=== PATIENT | male | born 1990 | race Caucasian/White ===

== ENCOUNTER 2018-01-08 20:08 | Emergency (ER) | payer OTHER ==
[~2018-01-08] VITALS: Ht 165.1 cm; Wt 77.0 kg
[~2018-01-08 20:08] MED LIST: PRLSR20 PO
[2018-01-08 20:11] VITALS: Ht 165.1 cm; Wt 77.0 kg
[2018-01-08 21:26] VITALS: O2SAT 100
[2018-01-08] MEDS ORDERED: KETOROLAC TROMETHAMINE 30 MG/ML VIAL IV STA (22:01)
[2018-01-08] MEDS ORDERED: IBUP-1428 PO (22:08)
[2018-01-08 22:58] LABS: BASO % 0.2 %; BASO ABS # 0.03 K/uL (0-0.2); EOS % 1.6 %; EOS ABS # 0.19 K/uL (0-0.5); HEMATOCRIT 38.4 % (42-52); HEMOGLOBIN 13.2 g/dL (14.0-18.0); IG# 0.01 K/uL (0.00-0.02); LYMPH ABS # 0.97 K/uL (1.2-3.4); MEAN CELL VOLUME 89.3 fL (80-100); MEAN CORPUSCULAR HEMOGLOBIN 30.7 pg (25-34); MEAN CORPUSCULAR HGB CONC 34.4 g/dl (32-36); MEAN PLATELET VOLUME 9.1 fL (7.4-10.4); MONO % 4.8 %; MONO ABS # 0.58 K/uL (0.11-0.59); NEUT % 85.3 %; NEUT ABS # 10.41 K/uL (1.4-6.5); PLATELET COUNT 247 K/uL (130-400); RED CELL DISTRIBUTION WIDTH CV 12.8 % (11.5-14.5); WHITE BLOOD COUNT 12.19 K/uL (4.8-10.8)
[2018-01-08 23:15] LABS: ALBUMIN 3.9 gm/dl (3.4-5.0); ALT/SGPT 21 U/L (12-78); AST/SGOT 11 U/L (15-37); BLOOD UREA NITROGEN 20 mg/dl (7-18); CARBON DIOXIDE 25 mmol/L (21-32); CREATININE 1.36 mg/dl (0.60-1.40); GLUCOSE 150 mg/dl (70-99); LIPASE 153 U/L (73-393); POTASSIUM 3.8 mmol/L (3.5-5.1); SODIUM 138 mmol/L (136-145)
[2018-01-08 23:18] LABS: ALKALINE PHOSPHATASE 68 U/L (45-117); TOTAL PROTEIN 6.8 gm/dl (6.4-8.2)
[2018-01-09] MEDS ORDERED: ONDANSETRON INJ 2 MG/ML 2 ML VIAL IV STA (01:13)
[2018-01-09] MEDS ORDERED: MoRPHine SULFATE 4 MG/ML 1 ML CARP\\VIAL IV STA (01:13)
[2018-01-09] MEDS ORDERED: OXYC1TAB3 PO (01:40)
[2018-01-09] MEDS ORDERED: OXYCODONE IR HOME PACK PO ONE (01:45)
[2018-01-09] MEDS ORDERED: ONDANSETRON HOME PACK 4MG OD TAB PO ONE (01:45)
[2018-01-09 02:00] VITALS: BP 117/71; PULSE 62; TEMP 36.5; O2SAT 95
--- NOTE | 2018-01-09 02:13 | EMERGENCY ROOM VISIT NOTE ---
History First contact with patient: 21:25 Chief Complaint: ABDOMINAL PAIN Stated Complaint: ABD PAIN Nursing Triage Summary: Pain that runs from left testicle up to ribs. Patient notes that testicular pain has been going on for several weeks but is now worse and into his ribs History of Present Illness The patient is a 27 year old male who presents to the Emergency Room with complaints of left testicular pain that radiates up to the left lower quadrant for the past day described as aching, ranging in severity 6 out of 10. Nothing makes it better or worse. Patient denies penile pain, penile discharge, urinary symptoms, chest pain, dyspnea, back pain, flank pain, nausea, vomiting, diarrhea. He has a history of varicoceles but this feels different. He does not routinely see a doctor. Review of Systems An 10 system review of systems was completed with positives and pertinent negatives listed in the HPI. Past Medical/Surgical History None Social History Smoking Status: Never Smoker Drug Use: none Marital Status: Housing Status: lives with family Occupation Status: employed Current/Historical Medications Scheduled PRN Ibuprofen (Motrin), 800 MG PO for Pain Oxycodone Immediate Rel Tab (Roxicodone Ir), 1-2 TAB PO Q4H PRN for Severe Pain Physical Exam Vital Signs Date Time Temp Pulse Resp B/P (MAP) Pulse Ox O2 Delivery O2 Flow Rate FiO2 01/09/18 02:00 36.5 62 21 117/71 95 01/09/18 01:40 36.5 62 117/71 95 Room Air 01/08/18 22:39 66 21 144/82 98 01/08/18 21:49 68 01/08/18 21:26 100 Room Air 01/08/18 20:11 36.6 73 19 124/86 100 Room Air Physical Exam VITALS: Vitals are noted on the nurse's note and reviewed by myself. Vital signs stable. GENERAL: Pleasant male, in no acute distress, nondiaphoretic, well-developed well-nourished. SKIN: The skin was without rashes, erythema, edema, or bruising. There is no tenting of the skin. Capillary reflex less than 2 seconds. HEAD: Normocephalic atraumatic. EARS: External auditory canals clear, tympanic membranes pearly schneider without erythema or effusion bilaterally. EYES: Pupils equal round and reactive to light and accommodation. Conjunctivae without injection, sclerae without icterus. Extraocular movements intact. NOSE: Patent, turbinates without inflammation or discharge. MOUTH: Mucous membranes moist. . Pharynx without erythema or exudate. Uvula midline. Airway patent. Tongue does not deviate. NECK: Supple without nuchal rigidity. No lymphadenopathy. No thyromegaly. Cervical spine is nontender. No JVD. HEART: Regular rate and rhythm without murmurs gallops or rubs. LUNGS: Clear to auscultation bilaterally without wheezes, rales or rhonchi. No dullness to percussion. No retractions or accessory muscle use. ABDOMEN: Positive bowel sounds x 4. Normal tympanic percussion. Soft, minimally tender left lower quadrant, no CVA tenderness, without masses or organomegaly. Curry sign negative. No guarding or rebound tenderness. exam: Bilateral testicles with varicoceles present, left testicle minimally tender to palpation. No rashes or lesions. Fourdrinier Tender present. MUSCULOSKELETAL: No muscle atrophy, erythema, or edema noted. NEURO: Patient was alert and oriented to person place and time. No focal neurological deficits. Medical Decision & Procedures Laboratory Results 01/08/18 22:40 Red Blood Count 4.30, Mean Corpuscular Volume 89.3, Mean Corpuscular Hemoglobin 30.7, Mean Corpuscular Hemoglobin Concent 34.4, Mean Platelet Volume 9.1, Neutrophils (%) (Auto) 85.3, Lymphocytes (%) (Auto) 8.0, Monocytes (%) (Auto) 4.8, Eosinophils (%) (Auto) 1.6, Basophils (%) (Auto) 0.2, Neutrophils # (Auto) 10.41, Lymphocytes # (Auto) 0.97, Monocytes # (Auto) 0.58, Eosinophils # (Auto) 0.19, Basophils # (Auto) 0.03 01/08/18 22:40 Test 01/08/18 21:22 01/08/18 22:40 Urine Color YELLOW Urine Appearance CLOUDY (CLEAR) Urine pH 7.0 (4.5-7.5) Urine Specific [place] 1.023 (1.000-1.030) Urine Protein NEG (NEG) Urine Glucose (UA) NEG (NEG) Urine Ketones TRACE (NEG) Urine Occult Blood 2+ (NEG) Urine Nitrite NEG (NEG) Urine Bilirubin NEG (NEG) Urine Urobilinogen NEG (NEG) Urine Leukocyte Esterase TRACE (NEG) Urine WBC (Auto) 1-5 /hpf (0-5) Urine RBC (Auto) 10-30 /hpf (0-4) Urine Hyaline Casts (Auto) 1-5 /lpf (0-5) Urine Epithelial Cells (Auto) 5-10 /lpf (0-5) Urine Bacteria (Auto) NEG (NEG) Urine Crystals See comments (NONE PRSENT) Urine Mucus PRESENT (NONE PRSENT) White Blood Count 12.19 K/uL (4.8-10.8) Red Blood Count 4.30 M/uL (4.7-6.1) Hemoglobin 13.2 g/dL (14.0-18.0) Hematocrit 38.4 % (42-52) Mean Corpuscular Volume 89.3 fL (80-100) Mean Corpuscular Hemoglobin 30.7 pg (25-34) Mean Corpuscular Hemoglobin Concent 34.4 g/dl (32-36) Platelet Count 247 K/uL (130-400) Mean Platelet Volume 9.1 fL (7.4-10.4) Neutrophils (%) (Auto) 85.3 % Lymphocytes (%) (Auto) 8.0 % Monocytes (%) (Auto) 4.8 % Eosinophils (%) (Auto) 1.6 % Basophils (%) (Auto) 0.2 % Neutrophils # (Auto) 10.41 K/uL (1.4-6.5) Lymphocytes # (Auto) 0.97 K/uL (1.2-3.4) Monocytes # (Auto) 0.58 K/uL (0.11-0.59) Eosinophils # (Auto) 0.19 K/uL (0-0.5) Basophils # (Auto) 0.03 K/uL (0-0.2) RDW Standard Deviation 41.0 fL (36.4-46.3) RDW Coefficient of Variation 12.8 % (11.5-14.5) Immature Granulocyte % (Auto) 0.1 % Immature Granulocyte # (Auto) 0.01 K/uL (0.00-0.02) Anion Gap 8.0 mmol/L (3-11) Est Creatinine Clear Calc Drug Dose 76.7 ml/min Estimated GFR () 80.9 Estimated GFR (Non- 69.8 BUN/Creatinine Ratio 14.9 (10-20) Calcium Level 9.0 mg/dl (8.5-10.1) Total Bilirubin 0.2 mg/dl (0.2-1) Direct Bilirubin < 0.1 mg/dl (0-0.2) Aspartate Amino Transf (AST/SGOT) 11 U/L (15-37) Alanine Aminotransferase (ALT/SGPT) 21 U/L (12-78) Alkaline Phosphatase 68 U/L (45-117) Total Protein 6.8 gm/dl (6.4-8.2) Albumin 3.9 gm/dl (3.4-5.0) Lipase 153 U/L (73-393) Medications Administered Medications (Trade) Dose Ordered Sig/Adriano Route Start Time Stop Time Status Last Admin Dose Admin Ketorolac Tromethamine (Toradol Inj) 30 mg NOW STAT IV 01/08/18 22:01 01/08/18 22:02 DC 01/08/18 22:38 30 MG Morphine Sulfate (MoRPHine SULFATE INJ) 4 mg NOW STAT IV 01/09/18 01:13 01/09/18 01:15 DC 01/09/18 01:31 4 MG Ondansetron HCl (Zofran Inj) 4 mg NOW STAT IV 01/09/18 01:13 01/09/18 01:15 DC 01/09/18 01:32 4 MG ED Course Prior records/ancillary studies reviewed. Triage Nursing notes reviewed. Additional history obtained from family. The patient's history was concerning for testicular pain and swelling. Differential diagnosis: Etiologies such as torsion, renal colic, mass, infection, hernia, hydrocele, epididymitis, trauma, intra-abdominal process, as well as others were entertained. Physical examination: Patient is alert and well-appearing ER treatment provided: Toradol, morphine, Zofran On reassessment the patient felt better. Diagnostic interpretation by me: The labs revealed hematuria. Hyperglycemia without DKA Imaging studies: Ultrasound shows bilateral varicoceles CT is concerning for left ureteral stone This appears to be consistent with left renal colic with hyperglycemia and varicoceles. Patient's pain was under control. He was well-appearing. He was given a list of family care doctors and a urology referral for further evaluation and treatment for his above findings. He was strongly encouraged to follow-up for his high blood sugar and for his kidney stone. Patient did not have acute abdomen on exam. No urine infection. He was well-appearing. He was not in DKA.. By the evaluation outlined above emergent etiologies such as torsion, mass, infection, hernia, hydrocele, epididymitis, trauma, intra- abdominal process, as well as others were deemed relatively unlikely. He is advised to return to the ER mediate for severe pain, fevers, vomiting, worsens in her symptoms or as needed. He was discharged home with his driving The pt informed about the findings as listed above. All questions were answered and pleased with the treatment. Return instructions were outlined and the patient was discharged in stable condition. Outpatient prescription management: OxyIR, Zofran Referral: The patient was referred to urology and family care for follow-up in 2-3 days for a recheck of the current condition Case reviewed with my attending Medical Decision As above [place] Drug Monitoring Program Search Results: patient reviewed within database, no issues identified Medication Reconcilliation Current Medication List: was personally reviewed by me Blood Pressure Screening Patient's blood pressure: Normal blood pressure Impression Primary Impression: Renal colic on left side Additional Impressions: Hyperglycemia Varicocele Departure Information Dispostion Home / Self-Care Condition GOOD Prescriptions Oxycodone Immediate Rel Tab (ROXICODONE IR) 5 Mg Tab 1-2 TAB PO Q4H Y for Severe Pain, #15 TAB Prov: Nori Burgos ., RODOLFO 01/09/18 Referrals Freedom Singh, Kamila.Erin. Forms HOME CARE DOCUMENTATION FORM, Work Instructions, Return To Work: 2 days IMPORTANT VISIT INFORMATION Patient Instructions Hyperglycemia, Varicocele, Kidney Stones - [facility], [facility] Additional Instructions DO NOT drive, drink alcohol, operate machinery, or perform dangerous activities today. You were given medications in the ER that can affect your ability to safely function or operate a vehicle. Your blood sugar was high today. Follow-up with family care for this for possible diabetes. Oxycodone Immediate Release (OxyIR) 5mg: Take 1-2 pills every four hours for pain. Avoid alcohol, operating machinery or dangerous equipment, working on ladders or roofs, DRIVING, or situations where being under the influence may be dangerous. It is recommended to use an [id number] stool softener such as Colace, 100mg twice daily while taking this medication to avoid constipation. Zofran 4 mg: Take one every six hours as needed for nausea. Avoid alcohol, operating machinery or dangerous equipment, working on ladders or roofs, DRIVING , or situations where being under the influence may be dangerous. Ibuprofen(Motrin, Advil) may be used for fever or pain. Use 600mg every six hours as needed. Take with food. Avoid using more than 2400mg in a 24 hour period. Do not use 2400mg per day for more than three consecutive days without physician direction. Prolonged inappropriate use can lead to stomach upset or ulcers. This medication can be taken if you need to drive, work, or perform activities which may be dangerous when taking narcotic pain medication. (AND/OR) Acetaminophen(Tylenol) may be used for fever or pain. Use 1000mg every six hours as needed. Avoid using more than 3000mg in a 24 hour period. This medication can be taken if you need to drive, work, or perform activities which may be dangerous when taking narcotic pain medication. Strain your urine and collect all the stones or debris for the urologists. Rest and avoid strenuous activity until your stone passes and symptoms resolve. Drink plenty of fluids. Continue current medications. Return to the ER for worsening abdominal or back pain, vomiting, fevers, passing out, or as needed. Follow up with urology in 2-3 days, call for an appointment. Work Instructions Return To Work: 2 days Problem Qualifiers
--- NOTE | 2018-01-09 06:55 | DIAGNOSTIC IMAGING REPORT ---
CT OF THE ABDOMEN AND PELVIS WITHOUT CONTRAST, STONE PROTOCOL CLINICAL HISTORY: Left-sided pain. Hematuria. COMPARISON STUDY: None. TECHNIQUE: Helical axial images of the abdomen and pelvis were obtained without IV or oral contrast according to renal stone protocol. A dose lowering technique was utilized adhering to the principles of ALARA. FINDINGS: Lung bases are clear. A 4 mm proximal left ureteral calculi located at the L3 level results in mild to moderate left hydronephrosis. Several small bilateral renal calculi are noted. There is mild left perinephric/periureteral infiltration. No additional ureteral calculi are identified. There is no right hydronephrosis. Unenhanced images of the liver, spleen, adrenal glands and pancreas are normal. There is no lymphadenopathy. There is no bowel obstruction. The appendix is normal. No suspicious osseous lesions are present. 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 IMPRESSION: 1. 4 mm proximal left ureteral calculus which results in mild to moderate left hydronephrosis and perinephric infiltration. 2. Bilateral nephrolithiasis. Electronically signed by: Ayan Monroe M.D. 01/09/2018 6:54 AM Dictated Date/Time: 01/09/2018 6:50 AM
--- NOTE | 2018-01-09 07:04 | DIAGNOSTIC IMAGING REPORT ---
SCROTAL ULTRASOUND CLINICAL HISTORY: Left testicular pain. Possible epididymitis. COMPARISON STUDY: Scrotal ultrasound December 29, 2012. TECHNIQUE: Grayscale and color and duplex Doppler sonography of the scrotum was performed. FINDINGS: The right testis measures 4.8 x 2.6 x 3 cm and the left measures 4.9 x 2.7 x 3 cm. There is no testicular mass. Color flow within each testis is symmetric. There is no evidence for epididymitis. A left-sided varicocele is again noted. IMPRESSION: 1. Normal sonographic appearance of the testes. 2. No evidence for epididymitis. 3. Redemonstration of a left-sided varicocele. Electronically signed by: Ayan Monroe M.D. 01/09/2018 7:03 AM Dictated Date/Time: 01/09/2018 7:02 AM
[2018-01-14] MEDS ORDERED: OXYC1TAB3 PO (13:01)
[2018-01-14] MEDS ORDERED: PHEN-775 PO (13:01)
[2018-01-14] MEDS ORDERED: CIPR-255 PO (13:01)
== END 2018-01-09 02:01 | disposition home or self-care (01) ==
LOC: C.EDB 20:09 → C.EDA 01-09 02:01
DX: N23 Unspecified renal colic (principal); I86.1 Scrotal varices; R73.9 Hyperglycemia, unspecified

== ENCOUNTER → 2018-01-14 | Day surgery (SDC) | payer OTHER ==
[~2018-01-14] VITALS: Ht 165.1 cm; Wt 77.0 kg
[~2018-01-14] MED LIST changes: +ATROPINE SULFATE 0.1 MG/ML 5ML SYR IV PRN; +CIPR-255 PO; +CIPROFLOXACIN / D5W 400 MG IV SCH; +Cysto-Conray II 17.2% 250ML BOTTLE ONE; +DEXAMETHASONE SOD INJ 4 MG/ML VIAL ONE; +EpHEDrine SULFATE INJ 50 MG/ML AMP IV PRN; +FENTANYL CITRATE INJ 50 MCG/1 ML 2 ML VIAL IV PRN; +FENTANYL CITRATE INJ 50 MCG/1 ML 2 ML VIAL ONE; +HYDROmorphone INJ 1 MG/ML SYR IV PRN; +IBUP-1428 PO; +LIDOCAINE HCL 2% 2 ML VIAL (20MG/ML) ONE; +MIDAZOLAM HCL 1 MG/ML 2ML VIAL ONE; +ONDANSETRON INJ 2 MG/ML 2 ML VIAL IV PRN; +ONDANSETRON INJ 2 MG/ML 2 ML VIAL ONE; +OXYC1TAB3 PO; +OXYCODONE/ACETAMINOPHEN 5-325 TAB ONE; +OXYCODONE/ACETAMINOPHEN 5-325 TAB PO PRN; +PHEN-775 PO; +PHENAZOPYRIDINE HCL 200 MG TAB PO PRN; -PRLSR20 PO; +PROMETHAZINE HCL INJ 12.5 MG in SODIUM CHLORIDE 0.9% 50ML 50 ML IV PRN; +PROPOFOL IV EMULSION 10 MG/ML 20 ML VIAL IV ONE
[2018-01-14 10:40] VITALS: BP 129/74; PULSE 69; TEMP 36.9; O2SAT 97; Ht 165.1 cm; Wt 77.0 kg
--- NOTE | 2018-01-14 11:40 | History & Physical Bridge Note ---
H&P Re-Evaluation Bridge Note: I have examined the patient, reviewed the History & Physical and in the interval since the performance of the History & Physical I have noted the following changes of clinical significance: No changes noted
--- NOTE | 2018-01-14 12:35 | [facility] Post Operative Brief Note ---
Immediate Operative Summary Operative Date Jan 14, 2018. Pre-Operative Diagnosis Left ureteral stone Post-Operative Diagnosis Left ureteral stone Procedure(s) Performed Cystoscopy, Left Flexible Ureteroscopy, Laser Lithotripsy, Basket Stone Extraction, Placement of left ureteral stent Surgeon Dr. Anton Mccollum Air Drier Machine Operator Surgeon(s) None Estimated Blood Loss 5 mL Findings Consistent with Post-Op Diagnosis Specimens L ureteral stone for chemical analysis Drains L 6 fr multilength stent Anesthesia Type General Complication(s) none Disposition Accompanied Pt To Recover: no Disposition: Recovery Room / PACU
--- NOTE | 2018-01-14 13:00 | DIAGNOSTIC IMAGING REPORT ---
RETROGRADE INCLUDES KUB CLINICAL HISTORY: LT CYSTO/LASER/STENT stent placement TECHNIQUE: Image intensifier COMPARISON STUDY: None FINDINGS: Image intensifier was utilized for retrograde opacification of the left urinary tract followed by stent placement. IMPRESSION: Image intensifier used for left retrograde urinary tract evaluation followed by stent placement. The above report was generated using voice recognition software. It may contain grammatical, syntax or spelling errors. Electronically signed by: Osmar Casey M.D. 01/14/2018 12:59 PM Dictated Date/Time: 01/14/2018 12:58 PM
--- NOTE | 2018-01-14 13:02 | Discharge Instructions ---
Discharge Instructions Date of Service Jan 14, 2018. Admission Reason for Admission: Stones Discharge Discharge Diagnosis / Problem: L ureteral ston s/p uscope, laser litho, stent Discharge Goals Goal(s): Decrease discomfort, Improve function, Improve disease control, Therapeutic intervention Activity Recommendations Activity Limitations: as noted below Lifting Limitations: no more than 25 pounds, gradually increase as tolerated Exercise/Sports Limitations: rest today, gradually increase as tolerated May Resume Sexual Activity: after follow-up appointment Shower/Bathe: no limitations Driving or Machine Use: resume 1 day after discharge . Instructions / Follow-Up Instructions / Follow-Up Follow-up in office as planned for stent removal and follow-up with Dr. Bosch. Current Hospital Diet Patient's current hospital diet: Discharge Diet Recommended Diet: Regular Diet (good fluid intake) Procedures Procedures Performed: Cystoscopy, Left Flexible Ureteroscopy, Laser Lithotripsy, Basket Stone Extraction, RPG Placement of left ureteral stent Pending Studies Studies pending at discharge: yes List of pending studies: Stone analysis Medical Emergencies . Who to Call and When: Medical Emergencies: If at any time you feel your situation is an emergency, please call 911 immediately. . Non-Emergent Contact Non-Emergency issues call your: Urologist Call Non-Emergent contact if: you have a fever, temperature is above 101, your pain is not controlled, your pain is worsening, your pain is unusual for you, your pain is concerning you, you have any medication questions . . "Provider Documentation" section prepared by Anton Mccollum. . VTE Core Measure Inpt VTE Proph given/why not?: SCD's [place] Drug Monitoring Program Search Results: patient reviewed within database, see additional documentation (recent Rx - refill provided postop per patient request, few left from prior Rx due to use)
--- NOTE | 2018-01-14 13:10 | [facility] Operative Report ---
Operative Report Operative Date Jan 14, 2018. Pre-Operative Diagnosis Left ureteral stone Post-Operative Diagnosis Left ureteral stone Procedure(s) Performed Cystoscopy, Left Flexible Ureteroscopy, Laser Lithotripsy, Basket Stone Extraction, left RPG Placement of left ureteral stent Surgeon Dr. Anton Mccollum Header Up Surgeon(s) None Estimated Blood Loss 5 mL Findings Impacted left proximal ureteral stone, radiolucent on fluoroscopy, good stent position after completion of case, no large residual stone fragments or ureteral injuries noted. Specimens L ureteral stone for chemical analysis Drains L 6 fr multilength stent Anesthesia Type General Complication(s) none Disposition no Recovery Room / PACU Indications Patient is a pleasant 27-year-old male who is been seen in our office recently due to new onset of left renal colic associated with a 4 mm left proximal ureteral stone on CT scan via the emergency room. Please see H&P for further details. He is here today for endoscopic management of his stone. Intravenous ciprofloxacin was provided for antibiotic coverage and SCDs used for DVT prophylaxis. Risks and benefits of intervention have been discussed with the patient and his family preoperatively and consent reviewed. They vocalize a good understanding of the treatment plan. Description of Procedure Patient was properly identified and brought into the operative suite after education for proper consent of the chart. General anesthesia with laryngeal mask was initiated and patient was prepped and draped in the standard fashion for this procedure. Full timeout procedure was followed. 22 Moldovan rigid cystoscope was passed into the bladder under direct visualization and patient was noted to have no evidence of urethral strictures, minimally obstructive prostate gland and no intravesical lesions, papillary masses or calculi. Both ureteral orifices were appreciated to be in the normal anatomic location with the right ureteral orifice effluxing clear yellow urine. Left ureteral orifice was addressed and retrograde pyelography was performed. This demonstrated a normal distal and mid ureter with mild fullness of the renal pelvis and proximal ureter. This was followed by a sensor tip wire which was advanced to the level of the left renal pelvis with some resistance in the proximal ureter consistent with a poorly visualized stone. Cloudy urine with debris was noted to be draining after placement of the wire consistent with persistent obstruction and stone. An Amplatz superstiff wire was used as a working wire and a 12/14 Mold[place] 35 cm ureteral access sheath was placed up to the level of the vessels. Flexible fiberoptic ureteroscope was advanced over the working wire and the stone was encountered essentially at the same location that it did previously been present on CT scan imaging. 200 m laser fiber was used to fragment the stone into small pieces. It was noted to be essentially impacted prior to fragmentation. Open-ended basket was used to grasp the larger pieces and remove them to be sent for chemical analysis. Ureteroscope was then able to be advanced up to the level of the left renal pelvis where again cloudy urine was appreciated. Renal pelvis was flushed and pyeloscopy performed with no large stone fragments being appreciated at the level of the kidney. Complete exit ureteroscopy was performed including removal of the access sheath and inspection of the distal ureter demonstrating no evidence of ureteral injury , large retained stone fragments or ureteral perforation. Cystoscope was backloaded over the safety wire and a 6 [place] multilength ureteral stent was placed with redundant stent being present at the level of the renal pelvis and a double loop present within the bladder. Bladder was drained and cystoscope was removed. Anesthesia was reversed and patient was transferred to the recovery room in stable condition. Follow-up care: Patient will be discharged home with a refill of his narcotic pain medication, prescription for Pyridium and ciprofloxacin. Postoperative appointment is confirmed. Care is discussed with the patient's family today per his request in the postoperative period. Patient instructed to contact our service should he note any fevers, chills, nausea, vomiting or other difficulties with his healing. I attest to the content of the Intraoperative Record and any orders documented therein. Any exceptions are noted below.
--- NOTE | 2018-01-14 13:26 | Anesthesiology Progress Note ---
Anesthesia Post Op Note Date & Time Jan 14, 2018 at 13:26 Vital Signs Pain Intensity: 0 Vital Signs Past 12 Hours Date Time Temp Pulse Resp B/P (MAP) Pulse Ox O2 Delivery O2 Flow Rate FiO2 01/14/18 13:15 62 18 129/90 96 Room Air 01/14/18 13:05 71 18 129/90 99 Room Air 01/14/18 12:55 66 17 127/76 100 Oxymask 10 01/14/18 12:45 36.8 74 13 132/81 100 Oxymask 10 01/14/18 10:40 36.9 69 18 129/74 (92) 97 Room Air Notes Mental Status: alert / awake / arousable, participated in evaluation Pt Amnestic to Procedure: Yes Nausea / Vomiting: adequately controlled Pain: adequately controlled Airway Patency, RR, SpO2: stable & adequate BP & HR: stable & adequate Hydration State: stable & adequate Anesthetic Complications: no major complications apparent Awake, doing well, no complaints, VSS. Ready for d/c
[2018-01-14 13:30] VITALS: BP 143/81; PULSE 60; TEMP 36.8; O2SAT 97
[2018-01-14 14:00] VITALS: BP 134/81; PULSE 61; O2SAT 98
== END | disposition home or self-care (01) ==
LOC: C.ACU 10:12
PROVIDERS: ATTEND Urology
DX: N20.0 Calculus of kidney (principal); E78.00 Pure hypercholesterolemia, unspecified; N50.819 Testicular pain, unspecified; I86.1 Scrotal varices; Z82.49 Family history of ischemic heart disease and other diseases of the circulatory system; Z87.891 Personal history of nicotine dependence